=== PATIENT | male | born 1950 | race Caucasian/White ===

== ENCOUNTER 2022-07-03 15:12 | Inpatient (IN) ==
[2022-07-03] MEDS ORDERED: *HR* HYDROcodone/Acet 10/325 mg TABLET PO PRN (18:28)
[2022-07-03] MEDS ORDERED: polyethylene glycoL 3350 17 GM POWD.PACK PO PRN (18:28)
[2022-07-03] MEDS: *HR* HYDROcodone/Acet 5/325 mg TABLET PO PRN (18:44)
[2022-07-03] MEDS: Apixaban 5 MG TABLET PO SCH (20:33)
[2022-07-03] MEDS: carvediloL 25 MG TABLET PO SCH (20:33)
[2022-07-04 04:40] LABS: Basophils # 0.1 K/mcL (0.0-0.2); Basophils % 0.4 %; Eosinophils # 0.2 K/mcL (0.0-0.6); Eosinophils % 1.8 %; Hematocrit 30.8 % (37.5-50.1); Immature Granulocytes % 1.9 % (0-4); Lymphocytes # 2.5 K/mcL (0.6-4.6); Mean Corpuscular HGB Conc 32.5 g/dL (31.6-35.5); Mean Corpuscular Hemoglobin 30.5 pg (28.0-33.3); Mean Corpuscular Volume 93.9 fL (83.0-100.0); Mean Platelet Volume 11.9 fL (9.4-12.4); Monocytes # 1.1 K/mcL (0.0-1.3); Monocytes % 9.5 %; Neutrophils # 7.8 K/mcL (1.6-8.9); Platelet Count 172 K/mcL (140-400); Red Blood Count 3.28 M/mcL (4.19-5.50); Red Cell Distribution Width 12.8 % (11.5-14.5); Segmented Neutrophils % 65.4 %; White Blood Count 11.9 K/mcL (4.3-11.1)
[2022-07-04 04:47] LABS: Platelet Estimate Normal (Normal)
[2022-07-04 04:55] LABS: Albumin 3.1 g/dL (3.5-5.7); Albumin/Globulin Ratio 0.9 (1.1-2.2); Bilirubin,Total 0.6 mg/dL (0.3-1.0); Calcium 8.8 mg/dL (8.6-10.3); Globulin 3.4 g/dL (2.4-3.5); Magnesium 1.8 mg/dL (1.6-2.6); Potassium 5.1 mEq/L (3.5-5.1); Total Protein 6.5 g/dL (6.4-8.9)
[2022-07-04] MEDS: carvediloL 25 MG TABLET PO SCH ×2 (07:48→17:13)
[2022-07-04] MEDS: Apixaban 5 MG TABLET PO SCH ×2 (07:50→20:51)
[2022-07-04] MEDS: lisinopriL 20 MG TABLET PO SCH (08:47)
[2022-07-04] MEDS: Aspirin Enteric Coated 81 MG Tablet PO SCH (08:47)
[2022-07-04] MEDS: *HR* HYDROcodone/Acet 5/325 mg TABLET PO PRN (11:56)
[2022-07-05 05:00] LABS: Basophils # 0.1 K/mcL (0.0-0.2); Basophils % 0.4 %; Eosinophils # 0.2 K/mcL (0.0-0.6); Eosinophils % 1.7 %; Hematocrit 27.4 % (37.5-50.1); Hemoglobin 9.1 g/dL (12.9-16.9); Immature Granulocytes % 1.7 % (0-4); Lymphocytes # 2.4 K/mcL (0.6-4.6); Lymphocytes % 17.8 %; Mean Corpuscular HGB Conc 33.2 g/dL (31.6-35.5); Mean Corpuscular Hemoglobin 30.7 pg (28.0-33.3); Mean Corpuscular Volume 92.6 fL (83.0-100.0); Mean Platelet Volume 10.8 fL (9.4-12.4); Monocytes # 1.2 K/mcL (0.0-1.3); Monocytes % 8.9 %; Neutrophils # 9.2 K/mcL (1.6-8.9); Platelet Count 306 K/mcL (140-400); Red Blood Count 2.96 M/mcL (4.19-5.50); Red Cell Distribution Width 12.8 % (11.5-14.5); Segmented Neutrophils % 69.5 %; White Blood Count 13.2 K/mcL (4.3-11.1)
[2022-07-05 05:17] LABS: Calcium 8.5 mg/dL (8.6-10.3); Potassium 4.8 mEq/L (3.5-5.1); Uric Acid 6.7 mg/dL (2.3-7.6)
[2022-07-05] MEDS: *HR* HYDROcodone/Acet 5/325 mg TABLET PO PRN ×2 (06:05→15:38)
[2022-07-05] MEDS: Aspirin Enteric Coated 81 MG Tablet PO SCH (08:37)
[2022-07-05] MEDS: carvediloL 25 MG TABLET PO SCH ×2 (08:38→15:38)
[2022-07-05] MEDS: lisinopriL 20 MG TABLET PO SCH (08:38)
[2022-07-05] MEDS: Apixaban 5 MG TABLET PO SCH ×2 (08:39→21:01)
[2022-07-05] MEDS: Sennosides 8.6 MG TABLET PO PRN (21:06)
[2022-07-06 05:22] LABS: Basophils % 0.3 %; Eosinophils # 0.2 K/mcL (0.0-0.6); Eosinophils % 1.6 %; Hematocrit 28.7 % (37.5-50.1); Hemoglobin 9.3 g/dL (12.9-16.9); Immature Granulocytes % 1.4 % (0-4); Lymphocytes # 2.3 K/mcL (0.6-4.6); Lymphocytes % 17.2 %; Mean Corpuscular HGB Conc 32.4 g/dL (31.6-35.5); Mean Corpuscular Hemoglobin 30.3 pg (28.0-33.3); Mean Corpuscular Volume 93.5 fL (83.0-100.0); Mean Platelet Volume 10.4 fL (9.4-12.4); Monocytes # 1.2 K/mcL (0.0-1.3); Monocytes % 8.8 %; Neutrophils # 9.3 K/mcL (1.6-8.9); Platelet Count 345 K/mcL (140-400); Red Blood Count 3.07 M/mcL (4.19-5.50); Red Cell Distribution Width 12.9 % (11.5-14.5); Segmented Neutrophils % 70.7 %; White Blood Count 13.2 K/mcL (4.3-11.1)
[2022-07-06] MEDS: *HR* HYDROcodone/Acet 5/325 mg TABLET PO PRN ×2 (06:31→12:01)
[2022-07-06] MEDS: carvediloL 25 MG TABLET PO SCH ×2 (08:22→16:16)
[2022-07-06] MEDS: Apixaban 5 MG TABLET PO SCH ×2 (08:22→19:29)
[2022-07-06] MEDS: Aspirin Enteric Coated 81 MG Tablet PO SCH (08:22)
[2022-07-06] MEDS: lisinopriL 20 MG TABLET PO SCH (08:22)
[2022-07-06] MEDS ORDERED: Colchicine 0.6 MG TABLET PO ONE (11:02)
[2022-07-07 06:09] LABS: Basophils % 0.3 %; Eosinophils # 0.2 K/mcL (0.0-0.6); Eosinophils % 1.7 %; Hematocrit 27.5 % (37.5-50.1); Hemoglobin 9.1 g/dL (12.9-16.9); Immature Granulocytes % 0.9 % (0-4); Lymphocytes # 2.1 K/mcL (0.6-4.6); Lymphocytes % 18.2 %; Mean Corpuscular HGB Conc 33.1 g/dL (31.6-35.5); Mean Corpuscular Hemoglobin 30.5 pg (28.0-33.3); Mean Corpuscular Volume 92.3 fL (83.0-100.0); Mean Platelet Volume 10.3 fL (9.4-12.4); Monocytes # 0.9 K/mcL (0.0-1.3); Monocytes % 7.6 %; Neutrophils # 8.3 K/mcL (1.6-8.9); Platelet Count 384 K/mcL (140-400); Red Blood Count 2.98 M/mcL (4.19-5.50); Red Cell Distribution Width 12.7 % (11.5-14.5); Segmented Neutrophils % 71.3 %; White Blood Count 11.6 K/mcL (4.3-11.1)
[2022-07-07 06:27] LABS: Calcium 8.5 mg/dL (8.6-10.3); Potassium 4.4 mEq/L (3.5-5.1)
[2022-07-07] MEDS: carvediloL 25 MG TABLET PO SCH ×2 (08:03→16:38)
[2022-07-07] MEDS: Colchicine 0.6 MG TABLET PO SCH (08:03)
[2022-07-07] MEDS: Aspirin Enteric Coated 81 MG Tablet PO SCH (08:03)
[2022-07-07] MEDS: lisinopriL 20 MG TABLET PO SCH (08:03)
[2022-07-07] MEDS: Apixaban 5 MG TABLET PO SCH ×2 (08:04→19:38)
[2022-07-07] MEDS: *HR* HYDROcodone/Acet 5/325 mg TABLET PO PRN ×2 (08:05→14:45)
[2022-07-08 04:29] LABS: Basophils % 0.3 %; Eosinophils # 0.3 K/mcL (0.0-0.6); Eosinophils % 3.2 %; Hematocrit 28.4 % (37.5-50.1); Hemoglobin 9.3 g/dL (12.9-16.9); Immature Granulocytes % 0.7 % (0-4); Lymphocytes % 19.7 %; Mean Corpuscular HGB Conc 32.7 g/dL (31.6-35.5); Mean Corpuscular Hemoglobin 30.6 pg (28.0-33.3); Mean Corpuscular Volume 93.4 fL (83.0-100.0); Mean Platelet Volume 9.9 fL (9.4-12.4); Monocytes # 0.7 K/mcL (0.0-1.3); Platelet Count 398 K/mcL (140-400); Red Blood Count 3.04 M/mcL (4.19-5.50); Red Cell Distribution Width 12.8 % (11.5-14.5); Segmented Neutrophils % 69.1 %; White Blood Count 10.1 K/mcL (4.3-11.1)
[2022-07-08 04:43] LABS: Albumin 2.7 g/dL (3.5-5.7); Albumin/Globulin Ratio 0.7 (1.1-2.2); Bilirubin,Total 0.3 mg/dL (0.3-1.0); Calcium 8.4 mg/dL (8.6-10.3); Globulin 3.8 g/dL (2.4-3.5); Magnesium 1.9 mg/dL (1.6-2.6); Potassium 4.8 mEq/L (3.5-5.1); Total Protein 6.5 g/dL (6.4-8.9)
[2022-07-08] MEDS: lisinopriL 20 MG TABLET PO SCH (09:08)
[2022-07-08] MEDS: Apixaban 5 MG TABLET PO SCH ×2 (09:08→19:36)
[2022-07-08] MEDS: Colchicine 0.6 MG TABLET PO SCH (09:08)
[2022-07-08] MEDS: Aspirin Enteric Coated 81 MG Tablet PO SCH (09:08)
[2022-07-08] MEDS: carvediloL 25 MG TABLET PO SCH ×2 (09:09→16:33)
[2022-07-08] MEDS: *HR* HYDROcodone/Acet 5/325 mg TABLET PO PRN ×2 (09:09→19:36)
[2022-07-09] MEDS: *HR* HYDROcodone/Acet 5/325 mg TABLET PO PRN (06:41)
[2022-07-09] MEDS: carvediloL 25 MG TABLET PO SCH ×2 (08:19→17:02)
[2022-07-09] MEDS: Aspirin Enteric Coated 81 MG Tablet PO SCH (08:20)
[2022-07-09] MEDS: lisinopriL 20 MG TABLET PO SCH (08:20)
[2022-07-09] MEDS: Colchicine 0.6 MG TABLET PO SCH (08:20)
[2022-07-09] MEDS: Apixaban 5 MG TABLET PO SCH ×2 (08:21→19:37)
[2022-07-10] MEDS: Aspirin Enteric Coated 81 MG Tablet PO SCH (08:08)
[2022-07-10] MEDS: carvediloL 25 MG TABLET PO SCH ×2 (08:08→16:36)
[2022-07-10] MEDS: lisinopriL 20 MG TABLET PO SCH (08:08)
[2022-07-10] MEDS: Colchicine 0.6 MG TABLET PO SCH (08:08)
[2022-07-10] MEDS: Apixaban 5 MG TABLET PO SCH ×2 (08:24→21:11)
[2022-07-11 04:45] LABS: Hematocrit 30.7 % (37.5-50.1); Mean Corpuscular HGB Conc 32.6 g/dL (31.6-35.5); Mean Corpuscular Hemoglobin 30.2 pg (28.0-33.3); Mean Corpuscular Volume 92.7 fL (83.0-100.0); Mean Platelet Volume 9.5 fL (9.4-12.4); Platelet Count 486 K/mcL (140-400); Red Blood Count 3.31 M/mcL (4.19-5.50); Red Cell Distribution Width 12.6 % (11.5-14.5); White Blood Count 9.2 K/mcL (4.3-11.1)
[2022-07-11 05:04] LABS: Albumin 3.2 g/dL (3.5-5.7); Albumin/Globulin Ratio 0.8 (1.1-2.2); Bilirubin,Total 0.5 mg/dL (0.3-1.0); Calcium 9.3 mg/dL (8.6-10.3); Globulin 3.8 g/dL (2.4-3.5); Magnesium 1.7 mg/dL (1.6-2.6); Potassium 4.6 mEq/L (3.5-5.1)
[2022-07-11] MEDS: Apixaban 5 MG TABLET PO SCH ×2 (08:46→20:13)
[2022-07-11] MEDS: carvediloL 25 MG TABLET PO SCH ×2 (08:47→16:27)
[2022-07-11] MEDS: lisinopriL 20 MG TABLET PO SCH (08:47)
[2022-07-11] MEDS: Aspirin Enteric Coated 81 MG Tablet PO SCH (08:47)
[2022-07-11] MEDS: *HR* HYDROcodone/Acet 5/325 mg TABLET PO PRN ×2 (08:47→20:16)
[2022-07-11] MEDS: Doxycycline 100 MG CAPSULE PO SCH ×2 (11:58→20:13)
[2022-07-12] MEDS: Doxycycline 100 MG CAPSULE PO SCH ×2 (08:12→20:22)
[2022-07-12] MEDS: Apixaban 5 MG TABLET PO SCH ×2 (08:13→20:22)
[2022-07-12] MEDS: *HR* HYDROcodone/Acet 5/325 mg TABLET PO PRN ×2 (08:13→16:52)
[2022-07-12] MEDS: Aspirin Enteric Coated 81 MG Tablet PO SCH (08:13)
[2022-07-12] MEDS: carvediloL 25 MG TABLET PO SCH ×2 (08:13→16:53)
[2022-07-12] MEDS: lisinopriL 20 MG TABLET PO SCH (08:13)
[2022-07-12] MEDS: Sennosides 8.6 MG TABLET PO PRN (16:53)
[2022-07-13] MEDS: carvediloL 25 MG TABLET PO SCH ×2 (08:27→16:22)
[2022-07-13] MEDS: *HR* HYDROcodone/Acet 5/325 mg TABLET PO PRN ×2 (08:27→20:30)
[2022-07-13] MEDS: Apixaban 5 MG TABLET PO SCH ×2 (08:28→20:30)
[2022-07-13] MEDS: lisinopriL 20 MG TABLET PO SCH (08:28)
[2022-07-13] MEDS: Aspirin Enteric Coated 81 MG Tablet PO SCH (08:28)
[2022-07-13] MEDS: Doxycycline 100 MG CAPSULE PO SCH ×2 (08:28→20:30)
[2022-07-13] MEDS: Sennosides 8.6 MG TABLET PO PRN (08:35)
[2022-07-14 04:06] LABS: Hematocrit 29.4 % (37.5-50.1); Hemoglobin 9.5 g/dL (12.9-16.9); Mean Corpuscular HGB Conc 32.3 g/dL (31.6-35.5); Mean Corpuscular Hemoglobin 30.2 pg (28.0-33.3); Mean Corpuscular Volume 93.3 fL (83.0-100.0); Mean Platelet Volume 9.8 fL (9.4-12.4); Platelet Count 403 K/mcL (140-400); Red Blood Count 3.15 M/mcL (4.19-5.50); Red Cell Distribution Width 12.8 % (11.5-14.5); White Blood Count 8.2 K/mcL (4.3-11.1)
[2022-07-14 04:20] LABS: Calcium 9.1 mg/dL (8.6-10.3); Magnesium 1.6 mg/dL (1.6-2.6); Potassium 4.6 mEq/L (3.5-5.1)
[2022-07-14] MEDS: Apixaban 5 MG TABLET PO SCH ×2 (08:37→19:36)
[2022-07-14] MEDS: carvediloL 25 MG TABLET PO SCH ×2 (08:37→15:54)
[2022-07-14] MEDS: Doxycycline 100 MG CAPSULE PO SCH ×2 (08:37→19:36)
[2022-07-14] MEDS: lisinopriL 20 MG TABLET PO SCH (08:37)
[2022-07-14] MEDS: Aspirin Enteric Coated 81 MG Tablet PO SCH (08:37)
[2022-07-14 19:24] VITALS: RESP 16
[2022-07-14] MEDS: *HR* HYDROcodone/Acet 5/325 mg TABLET PO PRN (19:36)
[2022-07-15] MEDS: Aspirin Enteric Coated 81 MG Tablet PO SCH (08:36)
[2022-07-15] MEDS: lisinopriL 20 MG TABLET PO SCH (08:36)
[2022-07-15] MEDS: Apixaban 5 MG TABLET PO SCH ×2 (08:37→19:45)
[2022-07-15] MEDS: Doxycycline 100 MG CAPSULE PO SCH ×2 (08:37→19:44)
[2022-07-15] MEDS: carvediloL 25 MG TABLET PO SCH ×2 (08:37→16:17)
[2022-07-15 17:42] VITALS: O2SAT 97
[2022-07-15] MEDS: *HR* HYDROcodone/Acet 5/325 mg TABLET PO PRN (19:47)
[2022-07-16 07:35] VITALS: BP 153/84; PULSE 90; TEMP 98.2
[2022-07-16] MEDS: carvediloL 25 MG TABLET PO SCH (08:10)
[2022-07-16] MEDS: Apixaban 5 MG TABLET PO SCH (08:10)
[2022-07-16] MEDS: Aspirin Enteric Coated 81 MG Tablet PO SCH (08:10)
[2022-07-16] MEDS: lisinopriL 20 MG TABLET PO SCH (08:11)
[2022-07-16] MEDS: Doxycycline 100 MG CAPSULE PO SCH (08:11)
[2022-07-16] MEDS ORDERED: Flu Vac QV 22-23 (6MOS UP)/PF 0.5 ML SYRINGE IM ONE (14:40)
== END 2022-07-16 14:58 | disposition home health service (06) | DRG 552 ==
LOC: INPGRE 18:29
PROVIDERS: ADMIT Family Medicine; ATTEND Family Medicine